=== PATIENT | male | born 1950 | race Caucasian/White ===

== ENCOUNTER → 2017-07-14 12:07 | Outpatient (CLI) | payer OTHER ==
--- NOTE | ~2017-07-14 | EC ---
PATIENT:TIESHA GOODE DATE OF SERVICE: 07/14/17 SEX: M MEDICAL RECORD: [id number] DATE OF : 46 LOCATION:[facility] AGE OF PATIENT: 66 ADMISSION DATE: 07/14/17 REFERRING PHYSICIAN: INTERPRETING PHYSICIAN: THADDEUS WEATHERS MD ECHOCARDIOGRAM REPORT ECHO CHARGES 4 ECHO COMPLETE CLINICAL DIAGNOSIS: ISCHEMIC HEART DISEASE/ TACHYCARDIA/BRADYCARDIA ECHOCARDIOGRAPHIC MEASUREMENTS (adult normal given) AC root (d.<3.7cm) 3.3 cm LV Septum d (<1.2 cm> 1.1 cm Valve Excursion 2.1 cm LV Septum (systole) 2.1 cm Left Atria (s.<4.0cm> 3.3 cm LVPW d(<1.2cm) 1.4 cm RV (d.<2.3cm) 2.8 cm LVPW (sytole) 2.3 cm LV diastole(<5.6CM) 6.8 cm MV E-F(>70mm/sec) cm LV systole 3.7 cm LVOT Diameter 2.2 cm MV exc.(>10mm) cm Est.ejection fraction (50-75%) % Pericardial Effusion N DOPPLER: LVIT cm/sec A 82.0 cm/sec E 60.0 cm/sec LA cm/sec RVSP 38.0 mmHg LVOT 112 cm/sec AOP1/2T 717.0m/s Asc. Ao 165 cm/sec RVOT 55.0 cm/sec RA cm/sec PA 83.0 cm/sec AV Gradient Peak 11.0 mmHg AV Mean 5.9 mmHg AV Area 2.2 cm MV Gradient Peak 4.2 mmHg MV Mean 0.74 mmHg MV Area cm COMMENTS: College Teacher: Darryl PHAMOE Lawn Caretaker: 1 Dr. Weathers TAPE# PACS DATE OF SERVICE: 07/14/2017 Echocardiogram FINDINGS: 1. Left ventricular chamber size is within normal limits. Left ventricular systolic function is normal. Overall ejection fraction estimated at 60%. 2. Left atrium is within normal limits at 3.3 cm. Right atrium and right ventricular chamber sizes are mildly dilated. 3. Valvular structures: Aortic valve have normal structure and motion. ECHOCARDIOGRAM REPORT [id number] TIESHA GOODE 4. Doppler interrogation reveals moderate aortic insufficiency, mild tricuspid regurgitation, and mild mitral regurgitation. No other valvular insufficiency or stenosis. Pulmonary systolic pressure is preserved at 38 mmHg. 5. No evidence of pericardial effusion or left ventricular thrombus. TRANSINT:[id number] Voice Confirmation ID: [id number] DOCUMENT ID: [id number] THADDEUS WEATHERS MD at 1323 CC: [id number] DICTATION DATE: 07/15/17 0833 KILN TENDER: 07/15/17 1212 DEP CLI 07/14/17 [id number] [place] [address]
== END | disposition home or self-care (01) ==
LOC: D.CN 12:07 → D.ECHO 13:30
DX: R00.1 Bradycardia, unspecified (principal)